=== PATIENT | female | born 1940 | race Caucasian/White ===

== ENCOUNTER → 2016-08-27 | Outpatient (CLI) | payer OTHER, SELFPAY | LOC: US 08:36 → KOH-I 09:00 | DX: K74.60 Unspecified cirrhosis of liver (principal); K75.81 Nonalcoholic steatohepatitis (NASH); K80.20 Calculus of gallbladder without cholecystitis without obstruction; R16.1 Splenomegaly, not elsewhere classified | CPT/HCPCS: 76700 ==

== ENCOUNTER → 2016-11-10 | Outpatient (CLI) | payer OTHER, SELFPAY | LOC: RAD 09:00 | DX: M54.9 Dorsalgia, unspecified (principal); M53.87 Other specified dorsopathies, lumbosacral region; I70.90 Unspecified atherosclerosis; I77.819 Aortic ectasia, unspecified site; M47.817 Spondylosis without myelopathy or radiculopathy, lumbosacral region | CPT/HCPCS: 72110 ==

== ENCOUNTER → 2016-11-17 | Outpatient (CLI) | payer OTHER, SELFPAY | LOC: US 13:17 | DX: M79.604 Pain in right leg (principal) | CPT/HCPCS: 93925 ==

== ENCOUNTER → 2016-12-02 | Outpatient (CLI) | payer OTHER, SELFPAY | LOC: US 13:02 | DX: R60.0 Localized edema (principal); K75.81 Nonalcoholic steatohepatitis (NASH); E11.9 Type 2 diabetes mellitus without complications; R06.00 Dyspnea, unspecified; I86.4 Gastric varices; J98.09 Other diseases of bronchus, not elsewhere classified | CPT/HCPCS: 71020; 93970 ==